=== PATIENT | female | born 1940 | race Caucasian/White ===

== ENCOUNTER 2016-08-08 18:31 | Inpatient (IN) | payer OTHER ==
[~2016-08-08] VITALS: Ht 157.5 cm; Wt 100.0 kg
[~2016-08-08 18:31] MED LIST: ASPIR-TRIN325 M1 PO; BIOTIN1000 MICRO PO; CALCIO DEL MAR500 MG PO; CALCIUM 600MG PO; CALCIUM600 MG PO; CELEBREX200 MG PO; CLIMARA0.05 MG TP; Calan SR,Covera HS,I PO; DIGITEK250 MC2 PO; DIGOXIN125 MCG PO; FERRO-TIME325 MG PO; HYDROCODON-ACE1 EAC7 PO; IRON325 MG PO; LISINOPRIL10 MG PO; MACULAR VITAMI1 EACH PO; METOPROLOL SUCC50 MG PO; METOPROLOL TART50 MG PO; NAPROSYN500 MG PO; NAPROXEN500 M1 PO; NAPROXEN500 M2 PO; OMEPRAZOLE40 M1 PO; OMNICEF300 MG PO; PREDNISONE10 M1 PO; PRINIVIL10 MG PO; PRINIVIL20 MG PO; Prilosec PO; SENNA LAX8.6 MG PO; TRAMADOL HCL50 MG PO; VERAPAMIL ER180 MG PO; VITAMIN C1000 M1 PO; VITAMIN C1000 M3 PO; VITAMIN D31000 UNI1 PO; VITAMIN D400 INTUNI PO; XARELTO10 MG PO; XARELTO20 MG PO; [UNRECOGNIZED DRUG - OTHER] PO; [UNRECOGNIZED DRUG - OTHER] PO; [UNRECOGNIZED DRUG - OTHER] TD
[2016-08-08 19:08] LABS: ADD MIUA? YES; BILIRUBIN NEGATIVE; BLOOD LARGE; COLOR YELLOW ((YELLOW)); GLUCOSE (STRIP) NEGATIVE; KETONES 20; LEUKOCYTES LARGE; NITRITE NEGATIVE; PROTEIN (STRIP) 30; SPECIFIC GRAVITY 1.015 (1.000-1.030); UROBILINOGEN 0.2 MG/DL (0.2-1.0)
[2016-08-08 19:18] LABS: HEMATOCRIT 55.5 % (36.0-46.0); MCH 28.3 PG (29.0-34.0); MCHC 33.3 G/DL (30.0-36.0); MCV 84.9 FL (83-99); MEAN PLAT.VOLUME 11.1 uM^3 (9.5-12.4); PLATELET COUNT 329 K/uL (156-360); RBC DIS.WIDTH-CV 14.5 % (11.8-14.6); RBC DIS.WIDTH-SD 45.6 % (39-53); RED BLOOD COUNT 6.54 M/uL (3.80-5.20); WHITE BLOOD COUNT 16.1 K/uL (4.1-10.2)
[2016-08-08 19:22] LABS: EOSINOPHIL (%) 0.1 % (0-5); IMMATURE GRANULOCYTE (%) 0.4 % (0.0-0.7); IMMATURE GRANULOCYTE COUNT 0.6 K/uL; LYMPHOCYTE COUNT 0.4 K/uL (1.0-2.8); MONOCYTE (%) 1.2 % (3-12); MONOCYTE COUNT 0.2 K/uL (0-0.8); NEUTROPHIL (%) 95.6 % (45-76); NEUTROPHIL COUNT 15.4 K/uL (1.8-6.4)
[2016-08-08 19:27] LABS: CHLORIDE 103 mEq/L (99-109); POTASSIUM 4.5 mEq/L (3.7-5.4); SODIUM 137 mEq/L (136-147)
[2016-08-08 19:30] LABS: GLUCOSE 161 mg/dL (70-99)
[2016-08-08 19:30] LABS: BACTERIA 1+ /HPF; CASTS NONE SEEN /LPF; CRYSTALS NONE SEEN; EPITHELIAL CELLS 1+ /HPF; MUCUS NONE SEEN /LPF; RED BLOOD CELLS 30-40 /HPF (0-5); UCUL ADDED? YES; WHITE BLOOD CELLS TNTC /HPF (0-5)
[2016-08-08 19:31] LABS: ANION GAP 12 MEQ/L (2-14)
[2016-08-08 19:32] LABS: TOTAL BILIRUBIN 1.8 mg/dL (0.0-1.0)
[2016-08-08 19:33] LABS: ALKALINE PHOSPHATASE 70 IU/L (3-129); GFR ESTIMATE (CALCULATED) 52 mL/min/
[2016-08-08 19:34] LABS: UREA NITROGEN (BUN) 20 mg/dL (9-23)
[2016-08-08] MEDS ORDERED: OMEPRAZOLE40 M1 PO (19:36)
[2016-08-08] MEDS ORDERED: ZESTRIL20 MG PO (19:36)
[2016-08-08] MEDS ORDERED: CELEBREX200 MG PO (19:37)
[2016-08-08] MEDS ORDERED: XARELTO20 MG PO (19:37)
[2016-08-08] MEDS ORDERED: DIGITEK250 MC2 PO (19:37)
[2016-08-08] MEDS ORDERED: VITAMIN C1000 M1 PO (19:38)
[2016-08-08] MEDS ORDERED: VITAMIN D31000 UNIT PO (19:38)
[2016-08-08] MEDS ORDERED: CALCIUM 600 MG1 EACH PO (19:38)
[2016-08-08] MEDS ORDERED: CLIMARA0.05 MG TP (19:39)
[2016-08-08] MEDS ORDERED: MACU SUPPORT PO (19:39)
[2016-08-08] MEDS ORDERED: BIOTIN1000 MCG PO (20:37)
[2016-08-08] MEDS ORDERED: TYLENOL EXTRA500 MG PO (20:38)
[2016-08-09 00:55] VITALS: BP 112/52
[2016-08-09 07:17] LABS: ALKALINE PHOSPHATASE 48 IU/L (3-129); ANION GAP 12 MEQ/L (2-14); CHLORIDE 106 MEQ/L (99-109); GFR ESTIMATE (CALCULATED) 58 mL/min/; GLUCOSE 121 mg/dL (70-99); POTASSIUM 4.7 MEQ/L (3.7-5.4); SAMPLE HEMOLYSIS CHECK 0; SAMPLE ICTERIC CHECK 0; SAMPLE LIPEMIA CHECK 0; SODIUM 139 MEQ/L (136-147); TOTAL BILIRUBIN 1.8 MG/DL (0.0-1.0); UREA NITROGEN (BUN) 20 mg/dL (9-23)
[2016-08-09 07:30] LABS: EOSINOPHIL (%) 0 % (0-5); HEMATOCRIT 50.8 % (36.0-46.0); IMMATURE GRANULOCYTE (%) 0.9 % (0.0-0.7); IMMATURE GRANULOCYTE COUNT 0.3 K/uL; LYMPHOCYTE COUNT 0.8 K/uL (1.0-2.8); MCH 28.3 PG (29.0-34.0); MCHC 31.9 G/DL (30.0-36.0); MCV 88.7 FL (83-99); MEAN PLAT.VOLUME 11.4 uM^3 (9.5-12.4); MONOCYTE (%) 4.1 % (3-12); MONOCYTE COUNT 1.3 K/uL (0-0.8); NEUTROPHIL (%) 92.5 % (45-76); NEUTROPHIL COUNT 28.5 K/uL (1.8-6.4); PLATELET COUNT 275 K/uL (156-360); RBC DIS.WIDTH-CV 14.7 % (11.8-14.6); RBC DIS.WIDTH-SD 47.2 % (39-53); RED BLOOD COUNT 5.73 M/uL (3.80-5.20)
[2016-08-09 07:33] LABS: WHITE BLOOD COUNT 30.9 K/uL (4.1-10.2)
[2016-08-09 07:58] VITALS: BP 108/55
[2016-08-09 11:30] VITALS: BP 111/61
[2016-08-09 15:42] VITALS: BP 113/54
[2016-08-09 19:36] VITALS: BP 126/76
[2016-08-09 23:32] VITALS: BP 141/63
[2016-08-10 03:42] VITALS: BP 121/67
[2016-08-10 07:05] LABS: EOSINOPHIL (%) 0.2 % (0-5); HEMATOCRIT 46.7 % (36.0-46.0); IMMATURE GRANULOCYTE (%) 0.3 % (0.0-0.7); LYMPHOCYTE COUNT 0.8 K/uL (1.0-2.8); MCH 29.6 PG (29.0-34.0); MCV 89.8 FL (83-99); MEAN PLAT.VOLUME 11.6 uM^3 (9.5-12.4); MONOCYTE (%) 6.2 % (3-12); MONOCYTE COUNT 0.7 K/uL (0-0.8); NEUTROPHIL (%) 86.3 % (45-76); NEUTROPHIL COUNT 9.7 K/uL (1.8-6.4); PLATELET COUNT 197 K/uL (156-360); RBC DIS.WIDTH-SD 48.9 % (39-53); WHITE BLOOD COUNT 11.2 K/uL (4.1-10.2)
[2016-08-10 07:20] LABS: ANION GAP 9 MEQ/L (2-14); CHLORIDE 108 MEQ/L (99-109); GFR ESTIMATE (CALCULATED) > 59 mL/min/; GLUCOSE 97 mg/dL (70-99); SAMPLE HEMOLYSIS CHECK 0; SAMPLE ICTERIC CHECK 0; SAMPLE LIPEMIA CHECK 0; SODIUM 139 MEQ/L (136-147); UREA NITROGEN (BUN) 15 mg/dL (9-23)
[2016-08-10 08:09] VITALS: BP 105/56
[2016-08-10 15:58] VITALS: BP 125/57
[2016-08-10 18:33] LABS: C DIFF TOXIN NEGATIVE (NEGATIVE)
[2016-08-10 18:36] LABS: PROBE CHECK PASS; SPECIMEN PROCESSING CONTROL PASS
[2016-08-10 20:19] VITALS: BP 126/62
[2016-08-11 00:15] VITALS: BP 143/85
[2016-08-11 07:35] VITALS: BP 135/68
[2016-08-11 08:49] LABS: HEMATOCRIT 47.7 % (36.0-46.0); MCH 29.9 PG (29.0-34.0); MCHC 33.5 G/DL (30.0-36.0); MCV 89.2 FL (83-99); MEAN PLAT.VOLUME 11.8 uM^3 (9.5-12.4); PLATELET COUNT 200 K/uL (156-360); RBC DIS.WIDTH-CV 14.8 % (11.8-14.6); RBC DIS.WIDTH-SD 47.9 % (39-53); RED BLOOD COUNT 5.35 M/uL (3.80-5.20)
[2016-08-11 16:37] VITALS: BP 118/58
[2016-08-11 22:36] VITALS: BP 143/76
[2016-08-12 07:56] VITALS: BP 130/56
[2016-08-12 15:50] VITALS: BP 134/67
[2016-08-12 22:28] VITALS: BP 127/60
[2016-08-13 15:42] VITALS: BP 133/74
[2016-08-13 23:34] VITALS: BP 146/67
[2016-08-14 07:12] VITALS: BP 150/71
[2016-08-14] MEDS ORDERED: FLORASTOR250 MG PO (10:59)
[2016-08-14] MEDS ORDERED: CIPRO500 MG PO (10:59)
[2016-08-14] MEDS ORDERED: MYCAMINE100 MG IV (10:59)
== END 2016-08-14 15:30 | disposition home health service (06) | DRG 690 ==
LOC: EME 18:31 → EDOF 22:39 → 5EAST 22:39
PROVIDERS: Emergency Medicine; Hospitalist; Nurse Practitioner Adult Health
DX: N13.6 Pyonephrosis (principal); I48.0 Paroxysmal atrial fibrillation; D75.1 Secondary polycythemia; I10 Essential (primary) hypertension; K21.9 Gastro-esophageal reflux disease without esophagitis; Z96.653 Presence of artificial knee joint, bilateral; E66.9 Obesity, unspecified; I47.1 Supraventricular tachycardia; B96.5 Pseudomonas (aeruginosa) (mallei) (pseudomallei) as the cause of diseases classified elsewhere; E87.2 Acidosis; B37.49 Other urogenital candidiasis; M41.9 Scoliosis, unspecified
CPT/HCPCS: 71010; 74000; 74176; 76937; 80048; 80053; 81003; 82365 90; 83605; 85025; 85027; 87040; 87077; 87086; 87106; 87149; 87149 59; 87186; 87186 90; 87493; 87801; 99281; 99285; C1894; J0696; J1450; J2248; J2543; J3260; J3370; J7030; J7050